=== PATIENT | male | born 1990 | race African-American/Black ===

== ENCOUNTER 2018-06-18 14:34 | Emergency (ER) | payer SELFPAY ==
[~2018-06-18] VITALS: Ht 185.4 cm; Wt 113.4 kg
[~2018-06-18 14:34] MED LIST: AUGMENTIN 875-1 EACH PO; CIPRO 500MG (E500 MG PO
[2018-06-18 14:37] VITALS: BP 128/86
--- NOTE | 2018-06-18 14:43 | ED UPPER/LOWER EXTREMITY COMPL ---
History of Present Illness General Chief Complaint: Lower Extremity Problems Stated Complaint: INFLAMMATION TO L KNEE Source: patient Exam Limitations: no limitations Vital Signs & Intake/Output Vital Signs & Intake/Output Vital Signs Date Time Temp Pulse Resp B/P B/P Pulse O2 O2 Flow FiO2 Mean Ox Delivery Rate 06/18 1455 Room Air 06/18 1437 98.1 74 18 128/86 98 Room Air Allergies Coded Allergies: No Known Allergies (10/03/17) Reconcile Medications Amoxicillin/Potassium Clav (Augmentin 875-125 Tablet) 875 MG-125 MG TABLET 1 TAB PO BID otitis Ciprofloxacin (Cipro) 500 MG TAB 1 TAB PO BID UTI Naproxen (Naprosyn) 500 MG TABLET 1 TAB PO BID pain Triage Nurses Notes Reviewed? yes Onset: Abrupt Duration: day(s): Timing: recent history Severity: moderate, severe Pain/Injury Location: Left: Knee. HPI: 27-year-old male comes into the emergency room for further evaluation of left knee pain. Patient reports that he initially injured his knee for years ago. He has had some intermittent pain since then. He was playing basketball over the last few days. He reports that swollen today. Denies any new injuries of twisting or falls. He thinks that it is his meniscus. He comes in for further evaluation. (Denis Neal) Past History Travel History Traveled to [place] past 21 day No Medical History Any Pertinent Medical History? see below for history Neurological: NONE EENT: NONE Cardiovascular: NONE Respiratory: NONE Gastrointestinal: NONE Hepatic: NONE Renal: NONE Musculoskeletal: NONE Psychiatric: NONE Endocrine: NONE Blood Disorders: NONE Cancer(s): NONE DENTAL COORDINATOR/Reproductive: hpv Surgical History Surgical History: GENITAL WARTS Psychosocial History What is your primary language Spanish Tobacco Use: Never used ETOH Use: denies use Illicit Drug Use: denies illicit drug use Family History Hx Contributory? No (Denis Neal) Review of Systems Review of Systems Constitutional: Reports: no symptoms. EENTM: Reports: no symptoms. Respiratory: Reports: no symptoms. Cardiovascular: Reports: no symptoms. Gastrointestinal/Abdominal: Reports: no symptoms. Genitourinary: Reports: no symptoms. Musculoskeletal: Reports: see HPI. Skin: Reports: no symptoms. Neurological/Psychological: Reports: no symptoms. Hematologic/Endocrine: Reports: no symptoms. Immunological: Reports: no symptoms. All Other Systems: Reviewed and Negative (Denis Neal) Physical Exam Physical Exam General Appearance: well developed/nourished, mild distress Head: atraumatic Eyes: Bilateral: normal appearance. Ears, Nose, Throat: normal ENT inspection, hearing grossly normal Neck: normal inspection Cardiovascular/Respiratory: no respiratory distress Back: normal inspection Knee Left: swelling, soft tissue tenderness, limited range of motion, MCL/LCL INTACT, POSITVE ADI, Neurologic/Tendon: normal sensation, normal motor functions, normal tendon functions, responds to pain, no evidence tendon injury, no pulse deficit Skin: intact, normal color, warm/dry (Denis Neal) Progress Differential Diagnosis: contusion, sprain, tendon injury, MENISCAL TEAR, ACL/PCL TEAR Plan of Care: 06/18/18 This is been a chronic issue. Patient needs follow-up with orthopedic and MRI of knee. I explained to him that we do not do cortisone shots here in the emergency room. Ice. Rest. Elevation. Naprosyn for pain. Return if any other concerns. Do not feel that repeat x-ray is indicated or needed at this time (Denis Neal) Departure Departure Disposition: HOME OR SELF CARE Condition: Stable Clinical Impression Primary Impression: Left knee pain Referrals: [place] LYONS,Renee Chaney MD,Sravan Davis Additional Instructions: Take Naprosyn as prescribed. Ice. Elevation. Follow-up with orthopedic doctor. Return if any concerns worsening symptoms. It is important you follow- up for MRI of your knee. Departure Forms: Customer Survey General Discharge Information Prescriptions: Current Visit Scripts Naproxen (Naprosyn) 1 TAB PO BID #30 TAB (Denis Neal) PA/CUB REPORTER Co-Sign Statement Statement: ED Attending supervision documentation- [] I saw and evaluated the patient. I have also reviewed all the pertinent lab results and diagnostic results. I agree with the findings and the plan of care as documented in the PA's/CUB REPORTER's documentation. [X] I have reviewed the ED Record and agree with the PA's/CUB REPORTER's documentation. [] Additions or exceptions (if any) to the PAs/CUB REPORTER's note and plan are summarized below: [] (Chris OATES,Julio C Tabares)
[2018-06-18] MEDS ORDERED: NAPROSYN500 M1 PO (14:44)
== END 2018-06-18 14:58 ==
LOC: ERH 14:34
DX: M25.562 Pain in left knee (principal)